=== PATIENT | female | born 1990 | race Caucasian/White ===

== ENCOUNTER 2019-10-20 08:35 | Inpatient (IN) | payer OTHER ==
[2019-10-20] VITALS (45 sets, daily range): BP systolic 90–140; BP diastolic 45–75; PULSE 60–100; TEMP 97.9–98.3
[~2019-10-20] VITALS: Ht 160 cm; Wt 77.7 kg
[2019-10-20] MEDS ORDERED: VTAMINC250TA (09:13)
[2019-10-20] MEDS ORDERED: VITAMIN D250 MCG PO (09:14)
[2019-10-20] MEDS ORDERED: NATURAL IRON65 MG (09:14)
--- NOTE | 2019-10-20 09:23 | NUR ---
Pt and spouse arrive ambulatory to unit from ER at 0850. Pt changed into gown, EFM explained and placed. Pt understands Spanish, but translates at bedside. Pt states she is having contractions and some vaginal bleeding, denies leaking of fluid, and reports good movement. Pt is tearful but appropriate. SVE 1/80/-2 with bloody show on glove. Assessment complete, vitals taken, water provided. Dr. Benitez notified, see physician notification.
--- NOTE | 2019-10-20 09:55 | NUR ---
Dr. Benitez on unit, reviewed strip and updated on patient condition. SVE recheck -/-2 with continued bloody show, pt feeling pain with contractions. Per Dr. Benitez, pt to walk unit for 45 mins to 1 hour with recheck of cervix at that time.
--- NOTE | 2019-10-20 09:56 | NUR ---
Pt taken off monitors, provided second gown, panties and pad to walk around unit.
--- NOTE | 2019-10-20 11:00 | NUR ---
Pt back to room and in bed. EFM back on at this time. SVE /-2. See physician notification.
[2019-10-20 12:06] LABS: BASO % 0.3 % (0.0-2.0); EOS % 0.3 % (0-4.0); GRAN # 8.1 (1.4-6.5); HEMOGLOBIN 10.2 g/dl (12.5-16.0); LYMPH % 18.3 % (20.0-51.0); MEAN CELL VOLUME 67 fl (80.0-100.0); MEAN CORPUSCULAR HEMOGLOBIN 21 pg (27.0-31.0); MEAN CORPUSCULAR HGB CONC 32 g/dl (33.0-37.0); MEAN PLATELET VOLUME 10.4 fl (7.4-10.4); MONO # 0.6 (0.1-0.6); MONO % 5.6 % (1.7-9.3); PLATELET COUNT 264 K/mm3 (130-400); REDCELL DISTRIBUTION WIDTH-CV 15.1 % (11.5-14.5)
[2019-10-20 12:07] LABS: HEMATOCRIT 32.3 % (37.0-47.0)
--- NOTE | 2019-10-20 12:21 | NUR ---
1202 - Dr. Benitez to pt bedside, discussed plan of care with pt and spouse. SVE per provider /-1. AROM at this time, light mec fluid noted. Pt positioned WL.
--- NOTE | 2019-10-20 13:56 | NUR ---
1307 - John Cooper CRNA to pt bedside. Discussed epidural placement and plan of care. Pt repositioned to sitting at bedside. 1317 - Test dose given. 1325 - Patient repositioned WL in bed. VS WNL. Pt tolerated well.
--- NOTE | 2019-10-20 14:20 | NUR ---
SVE 4-5//-1. Kurtz placed per protocol, pericare provided. Pt repositioned for comfort WL. Dr. Benitez notified, see physician notification.
--- NOTE | 2019-10-20 16:15 | NUR ---
SVE /-1. Dr. Benitez notified, see physician notification.
--- NOTE | 2019-10-20 19:45 | NUR ---
1944- Pt reports feeling a lot of pressure with contractions. SVE by this RN /0. 1946- FHR decel to 80's for 90 seconds with quick return to baseline 145. Repositioned pt to LL with peanut ball. 1951- Spoke with Dr. Benitez for an update on pt's status with FHR tracing, SVE and ctx pattern. No new orders at this time. Will continue to monitor.
--- NOTE | 2019-10-20 20:50 | NUR ---
2049- Pt reports feeling pressure. SVE by this RN /+3. 2051- Spoke with Dr. Benitez for an update. SVE and FHR tracing reviewed. Ok to start pushing per . 2054- Kurtz removed without complications. 2099- Pushing instructions reviewed and pushing started with contractions. 2108- Spoke with Dr. Benitez for an update on pt's progress with pushing. MD on her way to the hospital for delivery. 2120- Dr. Benitez at the bedside and pushing with pt. 2131- Pt set up for delivery. 2141- of viable female . Cords clamped and cut. Care of the given to nursery RN at the bedside. 2143- of placenta. Pitocin started at 333ml/hr per order and protocol. Fundus firm with moderate amount of lochia per Dr. Benitez. 2153- Fundus firm with massage with moderate amount of lochia per Dr. Benitez. Methergine requested. 2157- Methergine given per order. See EMAR for details. 2199- Fundus firm with lochia WNL.
[2019-10-21] VITALS (7 sets, daily range): BP systolic 88–110; BP diastolic 56–66; PULSE 67–88; TEMP 98.1–98.6
--- NOTE | 2019-10-21 01:00 | NUR ---
Pt up to the bathroom with assistance and without complications. Pt was unable to void. Ryann-care done. Assisted pt to the wheelchair for transfer to room 207. Pt was able to transfer to the bed with standby assist. Pt oriented to room, bed and call light within reach. Plan of care reviewed with pt and at the bedside.
[2019-10-21 08:50] LABS: BASO # 0.1 (0.0-0.2); BASO % 0.3 % (0.0-2.0); EOS % 0.1 % (0-4.0); GRAN # 11.8 (1.4-6.5); GRAN % 79.2 % (42.2-75.2); LYMPH # 2.2 (1.2-3.4); LYMPH % 14.4 % (20.0-51.0); MEAN CELL VOLUME 67 fl (80.0-100.0); MEAN CORPUSCULAR HGB CONC 32 g/dl (33.0-37.0); MEAN PLATELET VOLUME 10.9 fl (7.4-10.4); MONO # 0.8 (0.1-0.6); MONO % 5.5 % (1.7-9.3); PLATELET COUNT 252 K/mm3 (130-400); RED BLOOD COUNT 4.19 M/mm3 (4.10-5.30); REDCELL DISTRIBUTION WIDTH-CV 15.1 % (11.5-14.5)
[2019-10-21] MEDS ORDERED: IBU800 M1 PO (08:57)
[2019-10-21] MEDS ORDERED: PERCOCET 325 MG1 TA2 PO (08:57)
[2019-10-21 09:00] LABS: HEMATOCRIT 28.2 % (37.0-47.0); HEMOGLOBIN 8.9 g/dl (12.5-16.0); MEAN CORPUSCULAR HEMOGLOBIN 21 pg (27.0-31.0)
[2019-10-22 07:54] VITALS: BP 114/76; PULSE 76; TEMP 98.1
--- NOTE | 2019-10-22 10:09 | NUR ---
Initial visit attempt; Family resting, Cleaner left card of congratulations and God's blessings for the of their daughter and information regarding the availability of spiritual care at [facility].
== END 2019-10-22 14:05 | disposition home or self-care (01) | DRG 806 ==
LOC: LDRO 08:35 → LDR 08:50 → LDRO 09:00 → OB 09:00 → LDR 09:00 → OB 10-21 02:03 → LDR 10-22 00:04 → OB 10-22 00:05
PROVIDERS: ADMIT Student in an Organized Health Care Education/Training Program
PROC: 10907ZC Drainage of Amniotic Fluid, Therapeutic from Products of Conception, Via Natural or Artificial Opening (ICD-10-PCS; principal; 2019-10-20)
PROC: 10E0XZZ Delivery of Products of Conception, External Approach (ICD-10-PCS; 2019-10-20)
PROC: 0KQM0ZZ Repair Perineum Muscle, Open Approach (ICD-10-PCS; 2019-10-20)
DX: O99.02 Anemia complicating childbirth (principal); O72.1 Other immediate postpartum hemorrhage; Z37.0 Single live birth; D57.40 Sickle-cell thalassemia without crisis; Z3A.39 39 weeks gestation of pregnancy; O75.89 Other specified complications of labor and delivery; G43.909 Migraine, unspecified, not intractable, without status migrainosus; P96.83 Meconium staining; O69.81X0 Labor and delivery complicated by cord around neck, without compression, not applicable or unspecified; O70.1 Second degree perineal laceration during delivery; O99.62 Diseases of the digestive system complicating childbirth; K21.9 Gastro-esophageal reflux disease without esophagitis
CPT/HCPCS: J1200; J2210; J2590; J7120